=== PATIENT | female | born 1960 | race Caucasian/White ===

== ENCOUNTER 2024-07-06 21:27 | Inpatient (IN) ==
[2024-07-06 22:05] LABS: Basophils # (auto) 0.03 K/uL (0.00-0.20); Basophils % (auto) 0.2 %; Hematocrit (blood only) 36.9 % (37.0-47.0); Hemoglobin 12.3 g/dl (12.0-16.0); Immature Granulocytes # (auto) 0.06 K/uL (0.01-0.20); Immature Granulocytes % (auto) 0.4 %; Lymphocytes # (auto) 1.14 K/uL (1.20-3.40); Lymphocytes % (auto) 8.5 %; Mean Corpuscular Hemoglobin 28.9 pg (25.0-34.0); Mean Corpuscular Hgb Conc 33.3 g/dL (32.0-36.0); Mean Corpuscular Volume 86.6 fL (80.0-100.0); Mean Platelet Volume 9.7 fL (9.4-12.4); Monocytes # (auto) 0.96 K/uL (0.11-0.59); Monocytes % (auto) 7.2 %; Neutrophils # (auto) 11.15 K/uL (1.40-6.50); Neutrophils % (auto) 83.7 %; Platelet Count 292 K/uL (130-400); RDW Coefficient of Variation 13.1 % (11.5-14.5); RDW Standard Deviation 41.2 fL (36.4-46.3); Red Blood Count 4.26 M/uL (4.20-5.40); White Blood Count 13.34 K/ul (4.8-10.8)
[2024-07-06 22:21] LABS: Albumin Globulin Ratio 1.3 (0.9-2); Albumin Level 3.9 gm/dl (3.4-5.0); BUN Creatinine Ratio 15.7 (10-20); Bilirubin,Total 2.1 mg/dl (0.2-1.0); Calcium 8.5 mg/dl (8.6-10.3); Creatinine Clr Calc Pharmacy 67.6 ml/min; Globulin 3.1 gm/dl (2.5-4.0); Potassium 3.1 mmol/L (3.5-5.1)
[2024-07-06] MEDS: OPTIRAY 320 100ml IV ONE (23:10)
[2024-07-06] MEDS: ACETAMINOPHEN 1,000 MG/100 ML VIAL IV STA (23:25)
[2024-07-06] MEDS: SODIUM CHLORIDE 0.9% 1,000 ML IV ONE (23:26)
--- NOTE | 2024-07-06 23:52 | Emergency Department Note ---
Impression & Plan Diverticulitis, Diverticulitis of colon with perforation, Left lower quadrant abdominal pain, Leukocytosis, Hematuria, Lack of appetite ED Provider Note CHIEF COMPLAINT: Hematuria, abdominal pain, bloating HISTORY OF PRESENTING ILLNESS: The patient is a 64-year-old female with a H diverticulosis/diverticulitis who reports to the emergency department stating that she moved here on and that ever since she has felt abdominal pain and bloating for 3 days. She confirms that she noticed blood in her urine today and that her bowel movements have been loose. She also confirms lacking in appetite and significant abdominal bloating. She denies fevers, chills, upper respiratory symptoms, nausea and vomiting, chest pain, shortness of breath. REVIEW OF SYSTEMS: See HPI for pertinent positives and pertinent negatives. ALLERGIES: NKDA MEDICATIONS: Denies currently taking medication. PAST MEDICAL HISTORY: Diverticulosis/diverticulitis, denies any other past medical history. PHYSICAL EXAM: VITALS: Vitals are noted on the nurse's note and reviewed by myself. Vital signs stable. GENERAL: 64-year-old female, lying comfortably in bed, in no acute distress, nondiaphoretic, well-developed well-nourished. SKIN: Capillary refill less than 2 seconds. Patient is dry appearing. HEENT: Normocephalic. PERRLA. EOMI. Nares patent. Mucous membranes moist. Neck is supple without nuchal rigidity. HEART: Regular rate and rhythm without murmurs gallops or rubs. LUNGS: Clear to auscultation bilaterally without wheezes, rales or rhonchi. No retractions or accessory muscle use. ABDOMEN: Positive bowel sounds x 4. Tenderness upon palpation to the LLQ. Patient confirms abdominal bloating. The abdomen is soft without masses. No guarding or rebound tenderness. NEURO: Patient was alert and oriented. No focal neurological deficits. DIFFERENTIAL DIAGNOSIS: appendicitis, diverticulitis, diverticulitis with microperforation, diverticulitis with pneumoperitoneum, bowel obstruction, inflammatory bowel disease, renal colic, PUD, biliary pathology, pancreatitis, mesenteric ischemia, aortic pathology, infection, genitourinary, UTI, perforated viscus, among others. ED COURSE AND MEDICAL DECISION MAKING: HISTORY FROM INDEPENDENT HISTORIAN: The patient herself. MEDICATIONS GIVEN: 1 L normal saline, Tylenol 1000 mg IV, Zosyn 4.5 g INTERPRETATION OF LABS: I interpreted the labs with full lab results as below in the lab section of this note. Pertinent lab results discussed in the MDM section below. INTERPRETATION OF IMAGING: Imaging studies were interpreted by myself and read by radiology as per the imaging section of this note. CT abdomen and pelvis - Distal left and sigmoid colon diverticulitis with associated abdominal and pelvic pneumoperitoneum and free fluid. Likely reactive changes in the mid and distal small bowel. CONSULTATIONS: On-call [facility] surgery - Dr. Urias - Presented the patient to the on-call provider and with the CT results showing diverticulitis with pneumoperitoneum. Confirmed that the patient's pain was controlled with Tylenol and that her vitals are stable. She was started on Zosyn. Confirmed that she had not eaten today had only been drinking water. Did confirm with him that she has no other chronic medical conditions and does not take any other medications. They confirmed coming to evaluate the patient and admit her. They placed orders and did the admission. MDM SUMMARY: I evaluated the 64-year-old female who presents to the emergency department with a history of diverticulosis/diverticulitis with left lower quadrant abdominal pain, hematuria, loose stool, and lack of appetite. She denies fevers, chills, upper respiratory symptoms, nausea and vomiting, chest pain, shortness of breath. On exam the patient is lying comfortably in bed. Her vitals are stable and she is afebrile. She is dry appearing. HEENT exam is unremarkable. Chest auscultation reveals regular rate and rhythm without murmurs. Lungs are clear to auscultation bilaterally. Positive bowel sounds x 4. Tenderness upon palpation to the LLQ. Patient confirms abdominal bloating. The abdomen is soft without masses. No guarding or rebound tenderness. 1 L normal saline and Tylenol were given for symptom management. Lab work, CT abdomen pelvis, and urinalysis were ordered. Leukocytosis WBC 13.34. RBC 4.26. Hemoglobin hematocrit 12.3/39.6. Sodium 134. Potassium 3.1. No other electrolyte abnormality. BUN 14. Creatinine 0.89. AST 12. ALT 12. Lipase 6. Patient was not able to provide a urinalysis while in the emergency department. All laboratory results were thoroughly reviewed with the patient. CT abdomen pelvis shows distal left and sigmoid colon diverticulitis with pneumoperitoneum and free fluid. A consultation was placed with on-call general surgery provider which can be seen in detail above. The patient was started on Zosyn. Discussed with the patient that she will need to be seen by surgery and admitted and she agrees to this plan. Patient states that her pain is feeling better as long as she is laying comfortably in bed. General surgery provider Dr. Urias came and evaluated the patient and placed orders for admission. Patient agrees to the outlined treatment plan and all of her questions were answered. The patient was admitted in stable condition. DIAGNOSIS: Diverticulitis, diverticulitis of colon with perforation, left lower quadrant abdominal pain, leukocytosis, hematuria, lack of appetite The chart was completed utilizing [employer] voice recognition software. Grammatical errors, random word insertions, pronoun errors, and incomplete sentences are an occasional consequence of this system due to software limitations, ambient noise, and hardware issues. Any formal questions or concerns about the content, text, or information contained within the body of this dictation should be directly addressed to the provider for clarification. Past Med/Surg History Problem List (Updated 07/07/24 @ 02:29 by Debra Spivey PA-C) Lack of appetite (Acute) Hematuria (Acute) Leukocytosis (Acute) Left lower quadrant abdominal pain (Acute) Diverticulitis of colon with perforation (Acute) Diverticulitis (Acute) Diverticulitis large intestine Social History Smoking Status: Never smoker Hx Alcohol Use: Yes Alcohol type: wine Hx Substance Use: No Preferred Language: French Communication Ability: Effective Solids Control Technician Required: No Beliefs That Will Affect Care: None Current Living Situation: Parent Other Information That Helps Us Care for You: No Feels Safe at Home: Yes Safety Concerns: Feels Safe At This Time Assistive Devices: None Allergies Allergies Allergy/AdvReac Type Severity Reaction Status Date / Time No Known Allergies Allergy Unverified 07/07/24 01:03 Home Meds Home Medications Medication Instructions Recorded Confirmed No Known Home Medications 07/07/24 07/07/24 Results & Data (ED) Vital Signs Vital Signs - 24 hr 07/06/24 21:36 07/06/24 22:27 07/06/24 23:28 Temperature 37 C Temperature Source Temporal Artery Scan Pulse Rate 91 H 87 Pulse Rate [Apical] 86 Pulse Rhythm Regular Pulse Strength Normal Respiratory Rate 17 21 Respiratory Effort / Characteristics Non-Labored Spontaneous Non-Labored Spontaneous Respiratory Depth Normal Normal Respiratory Pattern Regular Regular Blood Pressure 150/78 H Blood Pressure [Right Arm] 133/64 Blood Pressure Mean 102 Blood Pressure Mean [Right Arm] 87 Blood Pressure Position Sitting Pulse Oximetry 95 96 Oxygen Delivery Method Room Air Room Air Sepsis Recent Fever Within 48 Hours No Sepsis New/Unexplained Change in Mental Status N/A Sepsis Action Taken by Nursing No Action Required Laboratory Data 07/07/24 07:20 07/06/24 21:48 Lab Results 07/06/24 Range/Units 21:48 WBC 13.34 H (4.8-10.8) K/ul RBC 4.26 (4.20-5.40) M/uL Hgb 12.3 (12.0-16.0) g/dl Hct 36.9 L (37.0-47.0) % MCV 86.6 (80.0-100.0) fL MCH 28.9 (25.0-34.0) pg MCHC 33.3 (32.0-36.0) g/dL RDW Std Deviation 41.2 (36.4-46.3) fL RDW Coeff of João 13.1 (11.5-14.5) % Plt Count 292 (130-400) K/uL MPV 9.7 (9.4-12.4) fL Immature Gran % (Auto) 0.4 % Neut % (Auto) 83.7 % Lymph % (Auto) 8.5 % [place] % (Auto) 7.2 % Eos % (Auto) 0.0 % Baso % (Auto) 0.2 % Neut # (Auto) 11.15 H (1.40-6.50) K/uL Lymph # (Auto) 1.14 L (1.20-3.40) K/uL [place] # (Auto) 0.96 H (0.11-0.59) K/uL Eos # (Auto) 0.00 (0.00-0.50) K/uL Baso # (Auto) 0.03 (0.00-0.20) K/uL Immature Gran # (Auto) 0.06 (0.01-0.20) K/uL Sodium 134 L (136-145) mmol/L Potassium 3.1 L (3.5-5.1) mmol/L Chloride 98 (98-107) mmol/L Carbon Dioxide 28 (21-32) mmol/L Anion Gap 8 (3-11) BUN 14 (6-23) mg/dl Creatinine 0.89 (0.6-1.2) mg/dl Est Cr Clr Drug Dosing 67.6 ml/min eGFR 72.80 BUN/Creatinine Ratio 15.7 (10-20) Glucose 116 H (70-99(Fasting)) mg/dl Calcium 8.5 L (8.6-10.3) mg/dl Total Bilirubin 2.1 H (0.2-1.0) mg/dl AST 12 L (13-39) U/L ALT 12 (7-52) U/L Alkaline Phosphatase 95 (34-104) U/L Total Protein 7.0 (6.0-8.3) gm/dl Albumin 3.9 (3.4-5.0) gm/dl Globulin 3.1 (2.5-4.0) gm/dl Albumin/Globulin Ratio 1.3 (0.9-2) Lipase 6 L (11-82) U/L Administered Medications Acetaminophen (Acetaminophen 325 Mg Tab) 650 mg PO Q4H PRN PRN Reason: pain/fever Stop: 08/06/24 01:22 Last Admin: 07/07/24 15:01 Dose: 650 mg Documented By: DWIGHT Potassium Chloride/Dextrose/Sod Cl (D5w And 1/2nss + 20meq Kcl) 20 meq in 1,000 mls @ 85 mls/hr IV .[id number] [facility] Stop: 07/10/24 01:29 Last Admin: 07/07/24 14:17 Dose: 85 mls/hr Documented By: Infusion: 07/07/24 14:17 Dose: Infused Documented By: Admin: 07/07/24 02:57 Dose: 85 mls/hr Documented By: COLT Piperacillin Sod/Tazobactam Sod (Zosyn) 4.5 gm in 100 mls @ 25 mls/hr IV Q8H [facility]; Protocol Stop: 07/17/24 07:59 Last Admin: 07/07/24 15:01 Dose: 25 mls/hr Documented By: Infusion: 07/07/24 13:17 Dose: Infused Documented By: Admin: 07/07/24 09:01 Dose: 25 mls/hr Documented By: DWIGHT Discontinued Medications Sodium Chloride (Nss) 1,000 mls @ 999 mls/hr IV .Q1H1M ONE Stop: 07/06/24 23:50 Last Infusion: 07/07/24 02:44 Dose: Infused Documented By: Admin: 07/06/24 23:26 Dose: 999 mls/hr Documented By: MED Acetaminophen (Ofirmev) 1,000 mg in 100 mls @ 400 mls/hr IV NOW STA Stop: 07/06/24 23:04 Last Infusion: 07/07/24 02:44 Dose: Infused Documented By: Admin: 07/06/24 23:25 Dose: 400 mls/hr Documented By: MED Piperacillin Sod/Tazobactam Sod (Zosyn) 4.5 gm in 100 mls @ 200 mls/hr IV NOW ONE; Protocol Stop: 07/07/24 01:05 Last Infusion: 07/07/24 02:44 Dose: Infused Documented By: Admin: 07/07/24 01:19 Dose: 200 mls/hr Documented By: MED Ioversol (Optiray 320 100ml) 93 ml IV ONCE ONE Stop: 07/06/24 23:10 Last Admin: 07/06/24 23:10 Dose: 93 ml Documented By: [facility] Imaging Data Radiologist's Impression: Abdomen/Pelvis CT 07/06/24 22:50 CR Exam(s): CT ABDOMEN + PELVIS With Contrast IV Amt: 93 cc opti 320 EXAM: CT Abdomen and Pelvis With Intravenous Contrast CLINICAL HISTORY: LLQ ab pain, bloating, belching. TECHNIQUE: Axial computed tomography images of the abdomen and pelvis with intravenous contrast. CTDI is 26 mGy and DLP is 1387 mGy-cm. Automated exposure control was utilized for the study. A dose lowering technique was utilized adhering to the principles of ALARA. CONTRAST: Patient received 93 cc opti 320 of IV contrast COMPARISON: No relevant prior studies available. FINDINGS: Lung bases: Right greater than left platelike atelectasis versus scarring. ABDOMEN: Liver: Mildly hypodense/fatty. No mass. Gallbladder and bile ducts: Unremarkable. No calcified stones. No ductal dilation. Pancreas: Unremarkable. No mass. No ductal dilation. Spleen: Multiple calcifications/granulomas. No splenomegaly. Adrenals: Unremarkable. No mass. Kidneys and ureters: No obstructive uropathy. No obstructing renal or ureteral calculi. No hydronephrosis or hydroureter. Stomach and bowel: Mild abdominal and pelvic free fluid. Scattered free intraperitoneal gas greatest anteriorly in the upper abdomen extending into the left hemipelvis. Distal left and proximal sigmoid colon diverticulosis with wall thickening and surrounding infiltration, consistent with acute diverticulitis. Free intraperitoneal gas adjacent to the sigmoid colon, consistent with diverticulitis associated perforation. Multiple loops of mid and distal small bowel wall thickening, likely reactive changes. No bowel obstruction or ileus. PELVIS: Appendix: No findings to suggest acute appendicitis. Bladder: Unremarkable. No mass. Reproductive: Atrophic uterus. Ovaries not identified. ABDOMEN and PELVIS: Bones/joints: No acute fracture. Degenerative changes of the spine. Soft tissues: Unremarkable. Vasculature: Atherosclerotic vascular calcifications. No abdominal aortic aneurysm. Lymph nodes: Unremarkable. No enlarged lymph nodes. IMPRESSION: Distal left and sigmoid colon diverticulitis with associated abdominal and pelvic pneumoperitoneum and free fluid. Likely reactive changes in the mid and distal small bowel. Communications: Call Doctor Pneumoperitoneum, new or unexpected Electronically signed by: Brett Montero M.D. 07/07/24 00:27 AM Discharge Plan Visit Data Chief Complaint: Abdominal Pain Stated Complaint: HEMATURIA,ABD PAIN AND BLOATIN ED Provider: Timi Scott ED Midlevel Provider: Debra Spivey Discharge Problem: Diverticulitis, Diverticulitis of colon with perforation, Left lower quadrant abdominal pain, Leukocytosis, Hematuria, Lack of appetite Patient Disposition: Admitted As Inpatient Condition: Good Discharge Instructions Interventions: ED Discharge Assessment Last Done: 07/07/24 02:24 Discharge Problem: Leukocytosis Qualifiers: Leukocytosis type: unspecified Qualified Code(s): D72.829 - Elevated white blood cell count, unspecified Hematuria Qualifiers: Hematuria type: unspecified type Qualified Code(s): R31.9 - Hematuria, unspecified
--- NOTE | 2024-07-07 00:28 | CT Scan Report ---
Exam(s): CT ABDOMEN + PELVIS With Contrast IV Amt: 93 cc opti 320 EXAM: CT Abdomen and Pelvis With Intravenous Contrast CLINICAL HISTORY: LLQ ab pain, bloating, belching. TECHNIQUE: Axial computed tomography images of the abdomen and pelvis with intravenous contrast. CTDI is 26 mGy and DLP is 1387 mGy-cm. Automated exposure control was utilized for the study. A dose lowering technique was utilized adhering to the principles of ALARA. CONTRAST: Patient received 93 cc opti 320 of IV contrast COMPARISON: No relevant prior studies available. FINDINGS: Lung bases: Right greater than left platelike atelectasis versus scarring. ABDOMEN: Liver: Mildly hypodense/fatty. No mass. Gallbladder and bile ducts: Unremarkable. No calcified stones. No ductal dilation. Pancreas: Unremarkable. No mass. No ductal dilation. Spleen: Multiple calcifications/granulomas. No splenomegaly. Adrenals: Unremarkable. No mass. Kidneys and ureters: No obstructive uropathy. No obstructing renal or ureteral calculi. No hydronephrosis or hydroureter. Stomach and bowel: Mild abdominal and pelvic free fluid. Scattered free intraperitoneal gas greatest anteriorly in the upper abdomen extending into the left hemipelvis. Distal left and proximal sigmoid colon diverticulosis with wall thickening and surrounding infiltration, consistent with acute diverticulitis. Free intraperitoneal gas adjacent to the sigmoid colon, consistent with diverticulitis associated perforation. Multiple loops of mid and distal small bowel wall thickening, likely reactive changes. No bowel obstruction or ileus. PELVIS: Appendix: No findings to suggest acute appendicitis. Bladder: Unremarkable. No mass. Reproductive: Atrophic uterus. Ovaries not identified. ABDOMEN and PELVIS: Bones/joints: No acute fracture. Degenerative changes of the spine. Soft tissues: Unremarkable. Vasculature: Atherosclerotic vascular calcifications. No abdominal aortic aneurysm. Lymph nodes: Unremarkable. No enlarged lymph nodes. IMPRESSION: Distal left and sigmoid colon diverticulitis with associated abdominal and pelvic pneumoperitoneum and free fluid. Likely reactive changes in the mid and distal small bowel. Communications: Call Doctor Pneumoperitoneum, new or unexpected Electronically signed by: Brett Montero M.D. 07/07/24 00:27 AM
--- NOTE | 2024-07-07 01:13 | History & Physical Report ---
Date of Service July 07, 2024 Assessment & Plan (1) Diverticulitis large intestine: Plan: diverticulitis with perforation fluid and minimal air not septic WBC 13 VSS will attempt conservative treatment, if fails will need ex lap and Hartmanns History of Present Illness Primary Care Provider: NO PCP This is a 64 YO female with pain since , mainly LLQ. She has known diverticulitis and treated with outpatient po antibiotics in the past. Subjective fevers and CT scan which shows perforated diverticulitis. Allergies Allergy/AdvReac Type Severity Reaction Status Date / Time No Known Allergies Allergy Unverified 07/07/24 01:03 Home Medications Medication Instructions Recorded Confirmed Type No Known Home Medications 07/07/24 07/07/24 History Past Med/Surg History Problem List (Updated 07/07/24 @ 01:20 by Brett Urias MD) Diverticulitis large intestine Social History Smoking Status: Never smoker Preferred Language: Burkinan Feels Safe at Home: Yes Review of Systems + fever and + anorexia; no chills no problem reported no problem reported no cough and no dyspnea no chest pain + abdominal pain and + nausea; no vomiting and no change in bowel habits no dysuria no back pain no localized weakness and no generalized weakness no behavioral changes no easy bleeding and no easy bruising Physical Exam Constitutional: WD/WN, vitals as above Eyes: no scleral abnormality ENMT: external ear and nose normal, oropharynx normal Neck: trachea midline Respiratory: normal respiratory effort, lungs clear to auscultation Cardiovascular: RRR, no murmur, no edema Gastrointestinal (Abdomen): Inspection/Auscultation: abdomen normal to inspection, normal bowel sounds and + abdominal surgical scar; abdomen not distended Percussion/Palpation: + abdomen tender and abdomen soft Musculoskeletal: Head/Neck/Chest: normocephalic and head atraumatic Skin: no rashes, warm and dry Results & Data Vital Signs (Past 12 Hours) Vital Signs Temp Pulse Pulse Resp BP BP Pulse Ox 07/06/24 23:28 86 21 133/64 96 07/06/24 22:27 87 07/06/24 21:36 37 C 91 H 17 150/78 H 95 O2 Del Method 07/06/24 23:28 Room Air 07/06/24 22:27 07/06/24 21:36 Room Air Diagnostic Findings Exam(s): CT ABDOMEN + PELVIS With Contrast IV Amt: 93 cc opti 320 EXAM: CT Abdomen and Pelvis With Intravenous Contrast CLINICAL HISTORY: LLQ ab pain, bloating, belching. TECHNIQUE: Axial computed tomography images of the abdomen and pelvis with intravenous contrast. CTDI is 26 mGy and DLP is 1387 mGy-cm. Automated exposure control was utilized for the study. A dose lowering technique was utilized adhering to the principles of ALARA. CONTRAST: Patient received 93 cc opti 320 of IV contrast COMPARISON: No relevant prior studies available. FINDINGS: Lung bases: Right greater than left platelike atelectasis versus scarring. ABDOMEN: Liver: Mildly hypodense/fatty. No mass. Gallbladder and bile ducts: Unremarkable. No calcified stones. No ductal dilation. Pancreas: Unremarkable. No mass. No ductal dilation. Spleen: Multiple calcifications/granulomas. No splenomegaly. Adrenals: Unremarkable. No mass. Kidneys and ureters: No obstructive uropathy. No obstructing renal or ureteral calculi. No hydronephrosis or hydroureter. Stomach and bowel: Mild abdominal and pelvic free fluid. Scattered free intraperitoneal gas greatest anteriorly in the upper abdomen extending into the left hemipelvis. Distal left and proximal sigmoid colon diverticulosis with wall thickening and surrounding infiltration, consistent with acute diverticulitis. Free intraperitoneal gas adjacent to the sigmoid colon, consistent with diverticulitis associated perforation. Multiple loops of mid and distal small bowel wall thickening, likely reactive changes. No bowel obstruction or ileus. PELVIS: Appendix: No findings to suggest acute appendicitis. Bladder: Unremarkable. No mass. Reproductive: Atrophic uterus. Ovaries not identified. ABDOMEN and PELVIS: Bones/joints: No acute fracture. Degenerative changes of the spine. Soft tissues: Unremarkable. Vasculature: Atherosclerotic vascular calcifications. No abdominal aortic aneurysm. Lymph nodes: Unremarkable. No enlarged lymph nodes. IMPRESSION: Distal left and sigmoid colon diverticulitis with associated abdominal and pelvic pneumoperitoneum and free fluid. Likely reactive changes in the mid and distal small bowel.
[2024-07-07] MEDS: PIPERACILLIN/TAZOBACTAM 4.5 GM/100 ML BAG IV ONE (01:19)
[2024-07-07] MEDS ORDERED: MoRPHine SULFATE 2 MG/ML CARP IV PRN ×2 (01:23)
[2024-07-07] MEDS ORDERED: ONDANSETRON INJ 2 MG/ML 2 ML VIAL IV PRN (01:23)
[2024-07-07 02:40] LABS: Appearance Urine Clear (Clear); Bacteria Urine Automated 1+ (None Seen); Bilirubin Urine Negative (Negative); Blood Urine Trace (Negative); Cast Urine Automated 0-2 /lpf (0-2); Color Urine Yellow; Glucose Urine UA Negative (Negative); Ketones Urine Trace (Negative); Leukocyte Esterase Urine Negative (Negative); Nitrite Urine Negative (Negative); Protein Urine Trace (Negative); RBC Urine Automated 0-2 /hpf (0-2); Specific Gravity Urine > 1.045 (1.000-1.030); Urobilinogen Urine Negative (Negative)
[2024-07-07] MEDS: D5W AND 1/2NSS + 20MEQ KCL 20 MEQ/1,000 ML BAG IV SCH (02:57)
[2024-07-07 07:46] LABS: Basophils # (auto) 0.02 K/uL (0.00-0.20); Basophils % (auto) 0.2 %; Eosinophils # (auto) 0.01 K/uL (0.00-0.50); Eosinophils % (auto) 0.1 %; Hematocrit (blood only) 31.2 % (37.0-47.0); Hemoglobin 10.3 g/dl (12.0-16.0); Immature Granulocytes # (auto) 0.07 K/uL (0.01-0.20); Immature Granulocytes % (auto) 0.6 %; Lymphocytes # (auto) 0.55 K/uL (1.20-3.40); Lymphocytes % (auto) 4.9 %; Mean Corpuscular Hemoglobin 28.9 pg (25.0-34.0); Mean Corpuscular Volume 87.6 fL (80.0-100.0); Mean Platelet Volume 9.7 fL (9.4-12.4); Monocytes # (auto) 0.81 K/uL (0.11-0.59); Monocytes % (auto) 7.2 %; Neutrophils # (auto) 9.82 K/uL (1.40-6.50); Platelet Count 232 K/uL (130-400); RDW Coefficient of Variation 13.3 % (11.5-14.5); RDW Standard Deviation 43.1 fL (36.4-46.3); Red Blood Count 3.56 M/uL (4.20-5.40); White Blood Count 11.28 K/ul (4.8-10.8)
[2024-07-07] MEDS: PIPERACILLIN/TAZOBACTAM 4.5 GM/100 ML BAG IV SCH (09:01)
--- NOTE | 2024-07-07 10:42 | Surgery Progress Note ---
Date of Service July 07, 2024 Assessment & Plan (1) Diverticulitis large intestine: Plan: diverticulitis with perforation fluid and minimal air WBC 11k (13k) VSS Plan: Continue conseravatie treatment IV zosyn pain management as needed clear liquids later today possibly encouraged oob to chair and ambulation antiemetic as needed Admission and Anticipated Discharge Date Admission Date: July 07, 2024 Subjective feeling better pain improved to 3/10 currently no nausea or vomiting pass gas and diarrhea, no blood in stools blood in urine has resolved belching Physical Exam Constitutional: WD/WN, vitals as above cooperative and comfortable; no acu te distress and not ill appearing Gastrointestinal (Abdomen): Inspection/Auscultation: abdomen normal to inspection, + abdomen distended (mild) and + abdominal surgical scar (laparoscopic scars) Percussion/Palpation: + abdomen tender (LLQ on deep palpation) and abdomen soft; no guarding, abdomen not rigid and abdomen not firm Skin: no rashes, warm and dry Psychiatric: Orientation: alert and oriented x 3 Results & Data Vital Signs (Past 12 Hours) Vital Signs Temp Pulse Pulse Resp BP Pulse Ox O2 Del Method 07/07/24 07:27 37.6 C H 77 18 120/68 94 Room Air 07/07/24 03:02 Room Air 07/07/24 03:02 37.0 C 62 18 128/70 98 Room Air 07/07/24 02:24 22 94 Room Air 07/07/24 02:17 75 24 124/66 94 Room Air 07/06/24 23:28 86 21 133/64 96 Room Air Laboratory Results 07/07/24 07/07/24 07/06/24 Range/Units 07:20 01:55 21:48 WBC 11.28 H 13.34 H (4.8-10.8) K/ul RBC 3.56 L 4.26 (4.20-5.40) M/uL Hgb 10.3 L 12.3 (12.0-16.0) g/dl Hct 31.2 L 36.9 L (37.0-47.0) % MCV 87.6 86.6 (80.0-100.0) fL MCH 28.9 28.9 (25.0-34.0) pg MCHC 33.0 33.3 (32.0-36.0) g/dL RDW Std Deviation 43.1 41.2 (36.4-46.3) fL RDW Coeff of João 13.3 13.1 (11.5-14.5) % Plt Count 232 292 (130-400) K/uL MPV 9.7 9.7 (9.4-12.4) fL Immature Gran % (Auto) 0.6 0.4 % Neut % (Auto) 87.0 83.7 % Lymph % (Auto) 4.9 8.5 % [place] % (Auto) 7.2 7.2 % Eos % (Auto) 0.1 0.0 % Baso % (Auto) 0.2 0.2 % Neut # (Auto) 9.82 H 11.15 H (1.40-6.50) K/uL Lymph # (Auto) 0.55 L 1.14 L (1.20-3.40) K/uL [place] # (Auto) 0.81 H 0.96 H (0.11-0.59) K/uL Eos # (Auto) 0.01 0.00 (0.00-0.50) K/uL Baso # (Auto) 0.02 0.03 (0.00-0.20) K/uL Immature Gran # (Auto) 0.07 0.06 (0.01-0.20) K/uL Sodium 134 L (136-145) mmol/L Potassium 3.1 L (3.5-5.1) mmol/L Chloride 98 (98-107) mmol/L Carbon Dioxide 28 (21-32) mmol/L Anion Gap 8 (3-11) BUN 14 (6-23) mg/dl Creatinine 0.89 (0.6-1.2) mg/dl Est Cr Clr Drug Dosing 67.6 ml/min eGFR 72.80 BUN/Creatinine Ratio 15.7 (10-20) Glucose 116 H (70-99(Fasting)) mg/dl Calcium 8.5 L (8.6-10.3) mg/dl Total Bilirubin 2.1 H (0.2-1.0) mg/dl AST 12 L (13-39) U/L ALT 12 (7-52) U/L Alkaline Phosphatase 95 (34-104) U/L Total Protein 7.0 (6.0-8.3) gm/dl Albumin 3.9 (3.4-5.0) gm/dl Globulin 3.1 (2.5-4.0) gm/dl Albumin/Globulin Ratio 1.3 (0.9-2) Lipase 6 L (11-82) U/L Urine Color Yellow Urine Appearance Clear (Clear) Urine pH 6.0 (4.5-7.5) Ur Specific [place] > 1.045 H (1.000-1.030) Urine Protein Trace H (Negative) Urine Glucose (UA) Negative (Negative) Urine Ketones Trace H (Negative) Urine Blood Trace H (Negative) Urine Nitrite Negative (Negative) Urine Bilirubin Negative (Negative) Urine Urobilinogen Negative (Negative) Ur Leukocyte Esterase Negative (Negative) Urine WBC (Auto) 6-10 H (0-5) /hpf Urine RBC (Auto) 0-2 (0-2) /hpf U Hyaline Cast (Auto) 0-2 (0-2) /lpf U Epithel Cells (Auto) 6-10 H (0-2) /hpf Urine Bacteria (Auto) 1+ H (None Seen)
[2024-07-07] MEDS: ACETAMINOPHEN 325 MG TAB PO PRN (15:01)
[2024-07-07] MEDS: KETOROLAC 30 MG/ML VIAL IV PRN (18:07)
[2024-07-08 07:04] LABS: Basophils # (auto) 0.02 K/uL (0.00-0.20); Basophils % (auto) 0.2 %; Eosinophils # (auto) 0.07 K/uL (0.00-0.50); Eosinophils % (auto) 0.8 %; Hematocrit (blood only) 29.5 % (37.0-47.0); Hemoglobin 9.5 g/dl (12.0-16.0); Immature Granulocytes # (auto) 0.05 K/uL (0.01-0.20); Immature Granulocytes % (auto) 0.6 %; Lymphocytes # (auto) 0.56 K/uL (1.20-3.40); Lymphocytes % (auto) 6.7 %; Mean Corpuscular Hemoglobin 28.2 pg (25.0-34.0); Mean Corpuscular Hgb Conc 32.2 g/dL (32.0-36.0); Mean Corpuscular Volume 87.5 fL (80.0-100.0); Mean Platelet Volume 9.5 fL (9.4-12.4); Monocytes # (auto) 0.51 K/uL (0.11-0.59); Monocytes % (auto) 6.1 %; Neutrophils # (auto) 7.12 K/uL (1.40-6.50); Neutrophils % (auto) 85.6 %; Platelet Count 222 K/uL (130-400); RDW Coefficient of Variation 13.3 % (11.5-14.5); Red Blood Count 3.37 M/uL (4.20-5.40); White Blood Count 8.33 K/ul (4.8-10.8)
--- NOTE | 2024-07-08 10:47 | Surgery Progress Note ---
Date of Service July 08, 2024 Assessment & Plan (1) Diverticulitis of colon with perforation: Plan: continue abx good response begin clears Admission and Anticipated Discharge Date Admission Date: July 07, 2024 Subjective clinically improving pain almost gone febrile overnight Review of Systems Constitutional: + fever; no chills Respiratory: no cough and no dyspnea Cardiovascular: no chest pain Gastrointestinal: + abdominal pain; no nausea, no vomiting and no change in bowel habits Genitourinary: no dysuria Musculoskeletal: no back pain Neurologic: no localized weakness and no generalized weakness Psychiatric: no behavioral changes Physical Exam Constitutional: WD/WN, vitals as above Respiratory: normal respiratory effort, lungs clear to auscultation Cardiovascular: RRR, no murmur, no edema Gastrointestinal (Abdomen): Inspection/Auscultation: abdomen normal to inspection and normal bowel sounds; abdomen not distended Percussion/Palpation: + abdomen tender (mild) and abdomen soft; no guarding and abdomen not rigid Musculoskeletal: Head/Neck/Chest: normocephalic and head atraumatic Skin: no rashes, warm and dry Results & Data Vital Signs (Past 12 Hours) Vital Signs Temp Pulse Resp BP Pulse Ox O2 Del Method 07/08/24 07:28 36.9 C 76 15 118/70 94 Room Air
--- NOTE | 2024-07-09 09:01 | Surgery Progress Note ---
Date of Service July 09, 2024 Assessment & Plan (1) Diverticulitis of colon with perforation: Plan: stop IVF full liquids con't IV abx good progress Admission and Anticipated Discharge Date Admission Date: July 07, 2024 Subjective pain almost gone taking clears well afebrile Review of Systems Constitutional: no fever and no chills Respiratory: no cough and no dyspnea Cardiovascular: no chest pain Gastrointestinal: + abdominal pain; no nausea, no vomiting and no change in bowel habits Genitourinary: no dysuria Musculoskeletal: no back pain Integumentary: no problem reported Neurologic: no localized weakness Psychiatric: no behavioral changes Endocrine: no fatigue Hematologic / Lymphatic: no easy bleeding and no easy bruising Physical Exam Constitutional: WD/WN, vitals as above Neck: trachea midline Respiratory: normal respiratory effort, lungs clear to auscultation Cardiovascular: RRR, no murmur, no edema Gastrointestinal (Abdomen): Inspection/Auscultation: abdomen normal to inspection and normal bowel sounds; abdomen not distended Percussion/Palpation: abdomen soft; abdomen nontender, no guarding and abdomen not rigid Musculoskeletal: Head/Neck/Chest: normocephalic and head atraumatic Skin: no rashes, warm and dry Psychiatric: Orientation: alert Results & Data Vital Signs (Past 12 Hours) Vital Signs Temp Pulse Resp BP Pulse Ox O2 Del Method 07/09/24 07:56 36.4 C L 72 18 120/70 93 Room Air
--- NOTE | 2024-07-10 12:37 | Surgery Progress Note ---
Date of Service July 10, 2024 Assessment & Plan (1) Diverticulitis of colon with perforation: Plan: avss abdominal pain in LLQ improving no n,v +bowel function Plan: advance to low fiber diet recommend colonoscopy in 6-8 weeks needs established with PCP, just moved to area low fiber diet on discharge possible d/c home tomorrow [facility] surgery covering weekend will need 10 days of Augmentin on discharge Discussed with DR. deras who agrees with above. Admission and Anticipated Discharge Date Admission Date: July 07, 2024 Subjective some pain and bloating with full liquids but not constant abdominal pain passing gas and diarrhea no fevers or chills no n,v ambulating Physical Exam Constitutional: WD/WN, vitals as above + obese, cooperative and comfortable; no acute distress and not ill appearing Respiratory: normal respiratory effort, lungs clear to auscultation Cardiovascular: RRR, no murmur, no edema Gastrointestinal (Abdomen): Inspection/Auscultation: abdomen normal to inspection; abdomen not distended Percussion/Palpation: + abdomen tender (LLQ on deep palpation) and abdomen soft; no guarding, abdomen not rigid and abdomen not firm Skin: no rashes, warm and dry Psychiatric: Orientation: alert and oriented x 3 Results & Data Vital Signs (Past 12 Hours) Vital Signs Temp Pulse Resp BP Pulse Ox O2 Del Method 07/10/24 07:40 36.9 C 73 16 129/72 93 Room Air
[2024-07-11 08:48] VITALS: PULSE 68; RESP 19; TEMP 98.4; O2SAT 94
[2024-07-11 12:19] VITALS: BP 136/82
--- NOTE | 2024-07-11 12:28 | Surgery Progress Note ---
<Statement entered by Porsche Louis DO - 07/11/24 14:45> I have seen and examined this patient with the surgical PA and I agree with this plan Date of Service July 11, 2024 Assessment & Plan (1) Diverticulitis of colon with perforation: Plan: Patient here w/ diverticulitis w/ microperforation Vitals are stable she is afebrile. LLQ tenderness is improving She continues to make good progress and feels symptomatically well Tolerating low fiber diet without worsening symptoms. + bowel function Has been established with a local PCP Recommend colonoscopy in 6-8 weeks Continue low fiber diet upon discharge and complete course of po abx prescribed for home Admission and Anticipated Discharge Date Admission Date: July 07, 2024 Subjective Patient reports feeling much better. She is tolerating low fiber diet, no nausea/vomiting. Pain much improved from admission. She wants to go home. Physical Exam Physical Exam: awake/alert, no distress Gastrointestinal (Abdomen): Inspection/Auscultation: abdomen not distended Percussion/Palpation: + abdomen tender (very mild discomfort in the LLQ to palpation) and abdomen soft Results & Data Vital Signs (Past 12 Hours) Vital Signs Temp Pulse Pulse Resp BP BP Pulse Ox 07/11/24 12:17 98.4 F 68 82 19 128/76 136/82 94 07/11/24 08:00 98.4 F 68 19 128/76 94 O2 Del Method 07/11/24 12:17 07/11/24 08:00 Room Air PG Care Time/CCT Total # of Minutes Spent Total Time Spent with Patient: Total time spent is greater than 50% in coordination of care (as documented) at patient's floor/unit and/or counseling patient: Coding Level of Care Code 39524 SUB INP/OBS CARE 03/28MIN Diagnoses Diverticulitis of colon with perforation K57.20
--- NOTE | 2024-07-13 11:18 | Discharge Summary ---
Date of Service July 13, 2024 Admission HPI Per Admitting Provider This is a 64 YO female with pain since , mainly LLQ. She has known diverticulitis and treated with outpatient po antibiotics in the past. Subjective fevers and CT scan which shows perforated diverticulitis. Principal Diagnosis Diverticulitis of sigmoid colon with microperforation Discharge Data Allergies Allergy/AdvReac Type Severity Reaction Status Date / Time No Known Allergies Allergy Unverified 07/07/24 01:03 Consultations 07/07/24 00:49 ED Decision to Admit Stat Ordered Studies 07/06/24 22:50 CT Abd and Pelvis [CT abd pelvis IV con only] Stat Hospital Course (1) Diverticulitis of colon with perforation: Patient was admitted to hospital for conservative management with IV Zosyn, IV fluids, npo for bowel rest, iv pain medication as needed. Patients diet was slowly advanced to low fiber diet by HD # 4 and tolerated well. Patient was discharged home on HD # 5 in stable condition. Local PCP was arranged as patient just moved to [facility]. 10 days of oral augmentin on discharge and follow up with PCP advised to discuss colonoscopy in 6-8 weeks. Overall hospital course was uneventful. Total Time Total Time Spent Total Time Spent (In Minutes): 30 Total Time Includes: Examination of the Patient, Discharge Planning, Medication Reconciliation and Communication With Other Providers Discharge Plan Discharge Items Patient Disposition: Home - Self-Care Reason For Visit: DIVERTCULITIS Discharge Diagnosis: acute diverticulitis with microperforation Condition on Discharge: Good Activity: Resume your previous activity Lifting: Gradually increase as tolerated Bathing: No limitations Exercise/Sports: Gradually increase as tolerated Driving/Machine Use: No limitations Non-emergency contact: Primary Care Provider Call non-emergency contact if: you have any medication questions, your pain is not controlled, your pain is worsening, your pain is concerning for you, you have a fever and your temperature is above 101.5 Follow-up/Referrals: Alyce Mccarty MD [Physician] - 08/04/24 12:45 pm (New pt appointment) Mirna Mejias PA-C [Physician Net Sql Developer] - PCP,NO [Primary Care Provider] - Diet: Low Fiber Addtl Attending Provider Instructions: Take entire course of oral antibiotics as prescribed for 10 days. Monitor for increasing pain, any fevers, chills, nausea or vomiting and if not controlled go to emergency department Low fiber diet for a few weeks and then slowly increase fiber back into diet Given complicated diverticulitis you should get a colonoscopy in 6-8 weeks. This can be discussed with your primary care doctor. Pending Studies at Discharge: No Stand-Alone Forms: My [facility], Smoking Cessation Medications and DC Order Prescriptions: New amoxicillin-pot clavulanate 875-125 mg tablet 1 tab PO BID Qty: 20 0RF Discharge Orders: Discharge Order (Routine); Ordered 07/11/24 Ordered By: Taryn Worthy/Other Patient Handouts: Low-Fiber Diet, Diverticulitis Dc Admission Data Admit Date/Time: 07/07/24 01:23 Attending Provider: Brett Urias Admit Provider: Brett Urias Primary Care Provider: PCP,NO Other Providers: Brett Urias Other Interventions: Discharge Summary Assessment (RN) Last Done: 07/11/24 12:17
== END 2024-07-11 12:54 | disposition home or self-care (01) | DRG 392 ==
LOC: ED 21:27 → 3N 07-07 01:23
DX: K57.20 Diverticulitis of large intestine with perforation and abscess without bleeding